=== PATIENT | female | born 1965 ===

== ENCOUNTER → 2018-08-25 | Emergency (ER) | payer OTHER ==
[~2018-08-25] VITALS: Ht 160 cm; Wt 84.4 kg
[~2018-08-25] MED LIST: DETROL1 MG PO; ESTRACE0.5 MG; LOSARTAN POTASS50 MG; SYNTHROID50 MCG
== END | disposition home or self-care (01) ==
LOC: ER 16:45
DX: S76.011A Strain of muscle, fascia and tendon of right hip, initial encounter (principal); X50.9XXA Other and unspecified overexertion or strenuous movements or postures, initial encounter; Y93.89 Activity, other specified; Y92.89 Other specified places as the place of occurrence of the external cause; Y99.8 Other external cause status

== ENCOUNTER 2021-02-02 13:46 | Emergency (ER) | payer OTHER ==
[~2021-02-02] VITALS: Ht 160 cm; Wt 83.5 kg
[2021-02-02] MEDS ORDERED: ZETIA10 MG (14:24)
[2021-02-02] MEDS ORDERED: LIVALO4 MG (14:24)
[2021-02-02] MEDS ORDERED: AMLODIPINE-OLM1 EAC2 (14:24)
[2021-02-02] MEDS ORDERED: NORFLEX100MG PO (16:29)
== END 2021-02-02 19:19 | disposition home or self-care (01) ==
LOC: ER 13:46
DX: M54.5 Low back pain (principal)